=== PATIENT | male | born 1995 | race Caucasian/White ===

== ENCOUNTER 2018-08-27 13:54 | Emergency (ER) | payer OTHER ==
[2018-08-27] MEDS ORDERED: HYDROmorphONE/DILAUDID 1 MG/ML INJ ONE ×2 (13:58→14:33)
[2018-08-27] MEDS ORDERED: ceFAZolin 2 GM/DEXTROSE 100 ML IV ONE (14:02)
--- NOTE | 2018-08-27 14:02 | EDPHY ---
H & P Time Seen by Provider: 08/27/18 13:56 HPI/ROS: Chief complaint: Right hand injury History of present illness: This is a 22-year-old male who presents to the emergency department with EMS for a right hand injury. Patient was using a table saw when the material kicked back causing his hand to strike the blade. He sustained severe cuts to all 5 digits at the level of the PIP joint. EMS was called. Police arrived 1st and placed a tourniquet on patient's right upper arm. EMS then dressed the wounds. He was provided with 100 mcg of fentanyl. On my evaluation he reports severe pain. Bleeding does appear controlled. He denies other injuries from this. Tetanus is up-to-date. Review of systems: A 10 point review of systems was obtained and other than described above was negative. (Zhao Rosenberg) - Physical Exam Exam: General Appearance: Alert, appears to be in significant pain. Eyes: PERRLA. Respiratory: Lungs clear to auscultation bilaterally. Cardiac: Regular rate and rhythm. Gastrointestinal: Soft. Nondistended. Nontender. Neurological: Alert and oriented. Skin: Severe lacerations to the right hand, digits 2 through 4. Amputation of the distal tip of the right thumb. Rest of the right upper extremities unremarkable. Musculoskeletal: Patient cannot move fingers in right hand, severe deformities in partial amputations. (Zhao Rosenberg) Constitutional: Initial Vital Signs Temperature (C) 37.0 C 08/27/18 14:03 Heart Rate 126 H 08/27/18 14:03 Respiratory Rate 30 H 08/27/18 14:03 Blood Pressure 185/121 H 08/27/18 14:03 O2 Sat (%) 99 08/27/18 14:03 O2 Delivery Mode Nasal Cannula O2 (L/minute) 3 Allergies/Adverse Reactions: No Known Allergies Allergy (Unverified 08/27/18 14:03) Home Medications: Medication Instructions Recorded NK [No Known Home Meds] 08/27/18 Medical Decision Making - Diagnostics Imaging: I viewed and interpreted images myself - Diagnostics Imaging Results: Imaging Impressions Hand X-Ray 08/27/18 13:59 Impression: 1. Partial amputation of the distal phalanx of the thumb. 2. Displaced fractures of the middle phalanges of the second, third, and fourth fingers. 3. Comminuted displaced fracture of the tuft of the distal phalanx of the second finger. 4. Minimally displaced avulsion fractures of the ulnar bases of the proximal phalanges of the second through fourth fingers. 5. Minimally displaced avulsion fracture of the ulnar base of the fifth metacarpal. Procedures: Digital blocks with Marcaine without epinephrine replaced at the base of each finger. Patient tolerated the procedure well. He obtained good anesthesia. ( Zhao Rosenberg) ED Course/Re-evaluation: Patient seen under the supervision of my secondary supervising physician Dr. Leo Payan. Patient presents to the emergency department with EMS for a injury to his right hand with a table saw. He has partial amputation to the thumb and severe lacerations with bony involvement to all digits of the right hand. He has been given fentanyl by EMS, Dilaudid by us and ultimately digital blocks with good control of pain. Patient is given 2 g of Ancef. I have consulted with our on-call hand surgeon, Dr. Dontae Schultz. We discussed that since there does appear to be potential to save patient's fingers he recommended patient be transferred down to [place]. I consulted with [facility], Dr. Martínez Elena, on-call hand surgeon. He will accept this patient in transfer. The patient will be transferred to the emergency department by ALS ambulance. The plan has been discussed with the patient voiced understanding and agreement with it. EMTALA forms have been filled out. (Zhao Rosenberg) Other Provider: I evaluated and participated in the management of the patient. I also evaluated the patient independently. My co-signature indicates that I have reviewed this chart and I agree with the findings and plan of care as documented. My personal H&P findings include: Patient presents the emergency department is limited trauma activation with extensive injuries involving the right fingers secondary to a table saw injury. The patient has partial amputations of all of his fingers. Some of questionable viability. The case was discussed with Dr. Schultz from Hand surgery who recommended the patient be [facility] to [facility] for consideration of microvascular intervention. The patient was accepted for transfer. EMTALA form has been filled out. My physical examination concurs without of the physician certified surgical assistant Zhao Rosenberg. The patient did receive IV Ancef in the emergency department. He also underwent a digital block. (Leo Payan) - Data Points Medications Given: Discontinued Medications Hydromorphone HCl (Dilaudid) 2 mg IVP EDNOW ONE Stop: 08/27/18 15:26 Last Admin: 08/27/18 15:26 Dose: 2 mg Cefazolin Sodium/Dextrose (Ancef) 100 mls @ 200 mls/hr IV EDNOW ONE PRN Reason: Protocol Stop: 08/27/18 14:31 Last Admin: 08/27/18 14:38 Dose: 100 mls Departure - Departure Disposition: Acute Care Hospital Not [facility] Clinical Impression: Finger amputation, traumatic Qualifiers: Encounter type: initial encounter Qualified Code(s): S68.119A - Complete traumatic metacarpophalangeal amputation of unspecified finger, initial encounter Condition: Fair Referrals: Patient,NotPresent [Unknown] - As per Instructions
[2018-08-27] MEDS ORDERED: ONDANSETRON 4 MG/2 ML VIAL ONE (14:05)
[2018-08-27 15:16] VITALS: BP 151/99
[2018-08-27] MEDS ORDERED: HYDROmorphONE/DILAUDID 2 MG/ML INJ IVP ONE (15:25)
== END 2018-08-27 15:49 | disposition short-term general hospital (02) ==
DX: S68.021A Partial traumatic metacarpophalangeal amputation of right thumb, initial encounter (principal); S62.620A Displaced fracture of middle phalanx of right index finger, initial encounter for closed fracture; S62.622A Displaced fracture of middle phalanx of right middle finger, initial encounter for closed fracture; S62.624A Displaced fracture of middle phalanx of right ring finger, initial encounter for closed fracture; S62.630A Displaced fracture of distal phalanx of right index finger, initial encounter for closed fracture; S62.610A Displaced fracture of proximal phalanx of right index finger, initial encounter for closed fracture; S62.612A Displaced fracture of proximal phalanx of right middle finger, initial encounter for closed fracture; S62.614A Displaced fracture of proximal phalanx of right ring finger, initial encounter for closed fracture; S62.636A Displaced fracture of distal phalanx of right little finger, initial encounter for closed fracture; W31.2XXA Contact with powered woodworking and forming machines, initial encounter
CPT/HCPCS: 96374; J0690; J1170; J2405